=== PATIENT | female | born 1955 | race Caucasian/White ===

== ENCOUNTER 2017-05-16 20:41 | Observation (INO) | payer OTHER ==
[~2017-05-16] VITALS: Ht 154.9 cm; Wt 100.0 kg
--- NOTE | ~2017-05-16 | HP ---
Unit #: [id number] #: [id number] Patient: RAVI RUANO [id number] [address] [place], [place] [address] [id number] I MR#: [id number] NAME: RAVI RUANO ROOM: [facility] Age: 61 Sex: F Admission Date: 05/17/2017 : 1955 Attending Physician: Linda Velazquez M.D. Referring Physician: Ev Henderson M.D. Primary Care Physician: Ev Henderson M.D. HISTORY AND PHYSICAL CHIEF COMPLAINT Symptomatic microcytic anemia. HISTORY This pleasant 61-year-old female who is status post gastric bypass surgery with AODM, hypertension, CAD, is admitted for symptomatic microcytic anemia. The patient last received an iron infusion in October. She was told that her hemoglobin was 13 after that. She was well until one week prior to admission when she noticed that she was paler, weaker, and shaky. Yesterday when attempting to ambulate she fell scraping her knees and ankles. She was brought to this emergency department late last evening with normal vital sings. Her hematocrit is 25.3, with a hemoglobin of 7.5, MCV is 66.7. Heme negative from below. His case was discussed with Dr. Berg who requests transfusion, possible iron infusion. I was asked to admit the patient. PAST MEDICAL HISTORY 1. History of iron deficiency anemia, status post gastric bypass surgery. Patient also received weekly subcu B12 shots along with p.o. folic acid each day. Last EGD was performed 07/2014 when the patient was found to be heme positive with her anemia. She was felt to have a marginal ulcer near her gastrojejunostomy. Underwent a colonoscopy at that time, which was only a fair prep, but was grossly normal. 2. Non ST elevation NM 07/2014. PCI and stent were performed on a 99% left circumflex stenosis. She was noted to have 60% stenosis of the LAD. Has a normal ejection fraction. 3. AODM. 4. Essential hypertension. 5. Hyperlipidemia. 6. x2. 7. Gastric bypass surgery. 8. Foot surgery. 9. Carpal tunnel release. 10. Myringotomy tubes. 11. Right rotator cuff repair. ALLERGIES None. HOME MEDICATIONS I have a partial list including trazodone, aspirin 81 mg daily, HCTZ and Unit #: [id number] #: [id number] Patient: RAVI RUANO, metformin 1,000 mg q. a.m., Lipitor, multivitamin, folic acid, B12 injections each week, Coreg 6.25 mg b.i.d., Neurontin, Zyrtec, and Singulair. FAMILY HISTORY CAD, diabetes mellitus, hypertension. SOCIAL HISTORY The patient's family lives with the patient. She is a lifelong nonsmoker and does not drink alcohol. REVIEW OF SYSTEMS Notable for weakness, shakiness, anemia, CAD, AODM, hypertension, hyperlipidemia, fall, above mentioned surgeries, peptic ulcer disease, COPD. All other systems were reviewed and otherwise negative. PHYSICAL EXAMINATION GENERAL: Pleasant, obese, 61-year-old pale female currently in no acute distress. VITAL SIGNS: Temperature 98.9, pulse 77, respirations 16, blood pressure 140/76, O2 saturation is 100% on room air. HEENT: Eyes PERRLA. Extraocular muscles are intact. Pharynx is benign. NECK: Supple without adenopathy or thyromegaly. CHEST: Clear. CARDIAC: Normal S1 and S2 without murmur. ABDOMEN: Bowel sounds are present. Well healed scars noted. Nontender. No hepatosplenomegaly, tenderness or masses. RECTAL: Heme negative per the ER physician. EXTREMITIES: Without edema. NEUROLOGIC: Patient is awake, alert and oriented. Cranial nerves are intact, equal strength throughout. DIAGNOSTIC STUDIES LABORATORY STUDIES: Hematocrit is 25.3, hemoglobin 7.5, MCV is 66.7, normal white count and platelet count. SMA 12 - glucose is 120. Cardiac markers are negative. Urinalysis is negative. IMAGING STUDIES: Plain x-rays of the knees bilaterally were negative for fracture. X-ray of the left ankle also negative for fracture. CARDIOLOGY STUDIES: EKG - normal sinus rhythm, rate 75, normal appearing. ASSESSMENT 1. Symptomatic microcytic anemia. Patient currently is heme negative. She is status post gastric bypass surgery. He is followed by Dr. Wesley. 2. History of peptic ulcer disease. 3. CAD, status post PCI and stent of the left circumflex with normal ejection fraction. 4. AODM. 5. COPD. 6. Essential hypertension. PLANS 1. Check iron stores. 2. Transfuse 2 units of packed red blood cells. Unit #: [id number] #: [id number] Patient: RAVI RUANO 3. SCDs for DVT prophylaxis. 4. Check labs post transfusion. 5. IV Venofer if okay with hematology. Will be seeing the patient in the morning. Dictated by Linda Velazquez M.D. AML/ts TD: 05/17/2017 05:38 JOB #: [id number] HISTORY AND PHYSICAL Page 1 of 1 X Linda Velazquez MD X HISTORY AND PHYSICAL
--- NOTE | ~2017-05-16 | CR173 ---
[facility] A Service of [facility] & [facility] RADIOLOGY TEXT RESULTS PATIENT: RAVI RUANO LOCATION: [facility] 305- : [birth year] UNIT #: [id number] AGE: [address]: Maria T Young MD SEX: F ORDER DR: [id number] [facility] [address] [facility]. [place], [place] [address] [id number] I MR#: [id number] #: [id number] NAME: RAVI RUANO : 1955 SEX: F STUDY DATE/TIME: 05/16/2017 21:49 UNIT: [address] ROOM: [facility] STUDY DESCRIPTION: CR Knee 3 Views Rt Attending Physician: Maria T Young M.D. Referring Physician: Ev Henderson M.D. Ordering Physician: Ed Doctor [id number] [facility] Primary Care Physician: Ev Henderson M.D. MEDICAL IMAGING REPORT This report is preliminary unless electronic signature is present EXAM Right knee, 05/16/2017 HISTORY A 61-year-old female with right knee pain status post fall today. COMPARISON STUDIES None. FINDINGS Three views of the right knee demonstrate no acute fracture or dislocation. No joint effusion. Advanced degenerative change patellofemoral joint. Mild degenerative change medial and lateral compartment. Soft tissues are unremarkable. IMPRESSION 1. No acute fracture or dislocation. 2. 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 Dictated by... Bebeto Dumas M.D. THIS IS AN ELECTRONICALLY VERIFIED REPORT Bebeto Dumas M.D. at 05/17/2017 2:25 PM Lisa TD: 05/17/2017 13:13 JOB #: [id number] MEDICAL IMAGING REPORT Page 1 of 1 COPY
--- NOTE | ~2017-05-16 | BMI ---
[facility] Nutrition Therapy DATE: 05/17/17 Patient: RAVI RUANO Physician: BOZENA Address: [address] [place] [address] Room/Bed: [address] [place] [address], Zip: [place] [address] Admit Date: 05/17/17 Date of : [birth year] Height: 5 1 Weight: 220 100 HIGH BMI NOTE: DX: 61 y/o female admitted for anemia and "legs gave out" ANTHROPOMETRICS: ht: 5'1" wt: 220# (100 kg) BMI 41 DIET: Consistent Carbohydrate INTERVENTION: 1. Consistent carbohydrate diet RECOMMENDATIONS: 1. Add healthy heart to current consistent carbohydrate diet order in order to promote gradual weight loss towards a healthy BMI (19.0-25.0). RD will f/u per protocol. Respectfully, TAMARA LARSON, record label internship Forrest Roman MS, RD, LD [facility] cc: client file
--- NOTE | ~2017-05-16 | CR172 ---
[facility] A Service of [facility] & [facility] RADIOLOGY TEXT RESULTS PATIENT: RAVI RUANO LOCATION: [facility] 305- : [birth year] UNIT #: [id number] AGE: [address]: Maria T Young MD SEX: F ORDER DR: [id number] [facility] [address] [facility] [address] [facility] [place], [place] [address] [id number] I MR#: [id number] #: [id number] NAME: RAVI RUANO : 1955 SEX: F STUDY DATE/TIME: 05/16/2017 21:45 UNIT: [address] ROOM: [facility] STUDY DESCRIPTION: CR Knee 3 Views Lt Attending Physician: Maria T Young M.D. Referring Physician: Ev Henderson M.D. Ordering Physician: Ed Doctor [id number] [facility] Primary Care Physician: Ev Henderson M.D. MEDICAL IMAGING REPORT This report is preliminary unless electronic signature is present EXAM Left knee, 05/16/2017 HISTORY 61-year-old female with left knee pain status post fall today. COMPARISON None FINDINGS Three views of the left knee demonstrate no acute fracture or dislocation. Trace joint effusion. Moderately advanced degenerative change patellofemoral joint. Moderate degenerative change medial and lateral compartments. Soft tissues are unremarkable. IMPRESSION 1. No evidence of acute fracture or dislocation. 2. Trace joint effusion. 3. 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 Dictated by... Bebeto Dumas M.D. THIS IS AN ELECTRONICALLY VERIFIED REPORT Bebeto Dumas M.D. at 05/17/2017 2:25 PM Kirsten TD: 05/17/2017 13:13 JOB #: [id number] MEDICAL IMAGING REPORT Page 1 of 1 COPY
--- NOTE | ~2017-05-16 | CO ---
Unit #: [id number] #: [id number] Patient: RAVI RUANO [id number] [address] [address] [id number] I MR#: [id number] NAME: RAVI RUANO ROOM: 305 Age: 61 Sex: F Admission Date: 05/17/2017 : 1955 Attending Physician: Maria T Young M.D. Primary Care Physician: Ev Henderson M.D. Requesting Physician: Ev Henderson M.D. CONSULTATION REPORT CHIEF COMPLAINT Anemia due to malabsorption of iron, recent VT, mild diabetes, hypertension, came to the hospital with a fall, no fracture. HISTORY OF PRESENT ILLNESS This is a 61-year-old female who in the past had a gastric bypass. Patient has had partial success. At present, she weighs about 220 pounds. The patient has been receiving intravenous iron, folic acid, B12 in my office for a long time. Hemoglobin has been stable. However, yesterday she had weakness, unable to walk, had a fall and injured her left knee. There is no fracture. CBC during this admission showed WBC 7.6, hemoglobin 7.5, MCV 66 and platelet 194. Creatinine is 0.8. LFTs are normal. The patient is taking aspirin for her coronary artery disease. The patient had a recent VT, has one stent. REVIEW OF SYSTEMS CONSTITUTIONAL: Mild decline in performance status. EYES: No visual symptoms. EARS, NOSE AND THROAT: There is no runny nose or sore throat or difficulty hearing. CARDIOVASCULAR: No chest pain. No shortness of breath. No palpitations. No orthopnea. No PND. RESPIRATORY: No cough. No wheezing. No hemoptysis. GASTROINTESTINAL: No nausea, vomiting, diarrhea, constipation, hematochezia or melena. GENITOURINARY: No urinary frequency, hesitancy or urgency. No blood in the urine. MUSCULOSKELETAL: No muscle or joint pain. NEUROLOGIC: No headache. No numbness or tingling. No weakness. No seizure. PSYCHIATRIC: No anxiety, depression or mood disturbance. ENDOCRINE: No excessive urination or thirst. DERMATOLOGIC: No rash or change in the skin. ALLERGIC/IMMUNOLOGIC: No symptoms. HEMATOLOGIC/LYMPHATIC: Denies any symptoms. PAST MEDICAL HISTORY 1. VT, status post stent. 2. Diabetes. 3. Hypertension. 4. Recurrent anemia. Unit #: [id number] #: [id number] Patient: RAVI RUANO ALLERGIES None. SOCIAL HISTORY No smoking, no alcohol, no drugs. 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 SURGICAL HISTORY 1. Carpal tunnel on both hands. 2. Three C-sections. 3. Right sided rotator cuff repair. FAMILY HISTORY Negative for cancer. PHYSICAL EXAMINATION VITAL SIGNS: Afebrile. Pulse 71, respiratory rate 18, O2 sat on room air 100%, blood pressure 161/80. GENERAL: Patient is comfortable. ECOG is 0. The patient is pleasant. HEENT: Moist mucosa. Pupils equally reactive to light. Extraocular muscles intact. Sclerae anicteric. No obvious bleeding from nasal mucosa or oral mucosa. Scalp normal. Hearing normal. NECK: No JVD. No lymphadenopathy. LYMPHATIC/HEMATOLOGIC: There is no palpable adenopathy in the neck, axilla or inguinal area. CARDIOVASCULAR: S1, S2. Regular rate and rhythm. No S3 or S4. RESPIRATORY: Chest symmetrical, normal. Clear to auscultation bilaterally. No wheezes, no rales, no rhonchi. No dullness to percussion. ABDOMEN/GASTROINTESTINAL: Abdomen is soft, nontender, nondistended. No hepatosplenomegaly. EXTREMITIES: There is no clubbing, no cyanosis, no edema. No varicose veins. NEUROLOGICAL: Patient is alert, awake and oriented x3. Cranial nerves II-XII are intact. Sensory grossly intact. Motor is 4/5 in all four extremities. Gait is normal. Station is normal. Language is normal. Memory is normal. DTRs +2 in all four extremities. MUSCULOSKELETAL: No joint swelling. No bony tenderness. No muscle tenderness. SKIN: No petechiae, no rash, no ecchymosis. PSYCHIATRIC: No anxiety. No delusions or hallucinations. There is no agitation. Eye contact is normal. Affect is appropriate. There is no flight of ideas. DIAGNOSTIC STUDIES LABORATORY: Labs as mentioned above. ASSESSMENT AND PLAN This is a 61-year-old female with the following active issues: 1. Anemia: It is complex in nature. She is taking aspirin. She is on and off bleeding. Her MCV is low. In the past, she had a gastric bypass. Today, we will give her some folic acid, B12 and intravenous iron. Probably she can go home in the morning. I will follow the patient as an outpatient. 2. Myocardial infarction: The patient has a myocardial infarction. She weighs about 100 kg. I had an extensive discussion in this regard. She was encouraged to lose some weight. She is tolerating aspirin. She is not taking Plavix. Denied any bleeding. Unit #: [id number] #: [id number] Patient: RAVI RUANO Dictated by... Marco A Villatoro/yobany TD: 05/17/2017 09:51 JOB #: [id number] CC: Flavia Antoine A.P.R.N. CONSULTATION REPORT Page 1 of 1 X Glen Wesley MD X CONSULTATION REPORT
--- NOTE | ~2017-05-16 | EKG ---
PATIENT: RAVI RUANO UNIT #: [id number] Ventricular Rate: 75 BPM Atrial Rate: 75 BPM P-R Interval: 168 ms QRS Duration: 90 ms Q-T Interval: 426 ms QTC Calculation(Bezet): 475 ms P Hometown: 27 degrees Calculated R Hometown: -4 degrees Calculated T Hometown: 20 degrees Diagnosis Line: Normal sinus rhythm Diagnosis Line: Minimal voltage criteria for LVH, may be normal Diagnosis Line: variant Diagnosis Line: Borderline ECG Diagnosis Line: When compared with ECG of 10-JUL-2014 06:41, Diagnosis Line: Nonspecific T wave abnormality no longer evident Diagnosis Line: in Lateral leads Diagnosis Line: QT has lengthened Diagnosis Line: Confirmed by ARAMIS MONTES MD ([id number]) on Diagnosis Line: 05/17/2017 3:52:43 PM INTERPRETING MD: SIMON ALONSO
--- NOTE | ~2017-05-16 | DS ---
Unit #: [id number] #: [id number] Patient: RAVI RUANO [id number] [address] [place], [place] [address] [id number] I MR#: [id number] NAME: RAVI RUANO ROOM: 305 Age: 61 Sex: F Admission Date: 05/17/2017 : 1955 Discharge Date: 05/17/2017 Attending Physician: Maria T Young M.D. Referring Physician: Ev Henderson M.D. Primary Care Physician: Ev Henderson M.D. DISCHARGE SUMMARY PRIMARY CARE PROVIDER Dr. Ev Henderson. CONSULTANTS Dr. Wesley, Oncology. PRINCIPAL DIAGNOSES 1. Symptomatic iron-deficiency anemia, status post transfusion of 2 units packed red blood cells. Discharge hemoglobin 10.1. 2. Severe iron-deficiency anemia secondary to history of gastric bypass surgery. Ferritin level is 5. 3. Hypertension. 4. Diabetes mellitus type 2, non-insulin requiring. 5. Coronary artery disease. 6. Hyperlipidemia. 7. Chronic insomnia. 8. Gastroesophageal reflux disease. 9. Obesity, morbid. 10. Status post fall. PROCEDURES 1. X-ray of left ankle on 05/16/2017 without any acute findings. Degenerative changes of the midfoot are noted. Mild arterial calcification noted. 2. X-ray of left knee on 05/16/2017 with no evidence of fracture or dislocation. Tricompartmental arthrosis noted. 3. X-ray of right knee on 05/16/2017 with again tricompartmental arthrosis. No other acute findings. CLINICAL HISTORY AND HOSPITAL COURSE Ms Ruano is a 61-year-old female, with history of chronic iron-deficiency anemia secondary to gastric bypass, who presents to the emergency department because she was feeling paler, weaker, and shaky. She actually fell yesterday at home, it was concerned that perhaps her hemoglobin was low. Upon presentation she was found to have a hemoglobin of 7.5 with an MCV of 66. The patient has not received any iron supplementation since 10/2016. The patient was subsequently placed in observation for evaluation. The patient was transfused 2 units of packed red blood cells. Her hemoglobin currently is 10.1. I will note that she was heme-negative in the ER. She is currently receiving a dose of IV Venofer. Her lightheadedness, her weakness, her shakiness have all resolved and she has Unit #: [id number] #: [id number] Patient: RAVI RUANO been ambulating to the bathroom. I will also note the x-rays were negative in the emergency department. Given she is clinically improved, Dr. Wesley is agreeable to discharge later today with plans for outpatient Venofer infusions. I will know the patient was hypertensive, but was not restarted on any of her blood pressure medications initially. I will give her a dose of these, re-evaluate blood pressure, and she can be discharged home later today. DISCHARGE CONDITION Stable. DISCHARGE STATUS Discharged to home. DISCHARGE MEDICATIONS Gabapentin 300 mg p.o. t.i.d., trazodone 150 mg at bedtime, Coreg 6.25 mg p.o. b.i.d., Dulera 100/5 two puffs b.i.d., Lipitor 20 mg at bedtime, Carafate 1 g p.o. q.i.d., Singulair 10 mg daily, daily multivitamin, aspirin 81 mg daily, potassium chloride 10 mEq p.o. b.i.d., folic acid 1 mg daily, vitamin B12 1000 mcg subcutaneously weekly, fluticasone 50 mcg 2 sprays per nostril daily, Norvasc 5 mg daily, metformin 1000 mg b.i.d., Zyrtec 10 mg daily, Coreg 3.125 mg p.o. b.i.d., hydrochlorothiazide 25 mg daily, ProAir HFA two puffs q.i.d. p.r.n. for shortness of breath, and CoQ10 100 mg p.o. daily. DISCHARGE INSTRUCTIONS The patient was instructed to follow heart healthy and constant carb diet. She will continue Accu-Cheks as she was doing home previously. She can increase her activity as tolerated. FOLLOWUP The patient will follow up with Dr. Wesley in 2 to 3 weeks. Need outpatient Venofer infusions arranged. Dictated by... Maria T Young M.D. CARYN/nestor TD: 05/20/2017 23:08 JOB #: [id number] DISCHARGE SUMMARY Page 1 of 1 X Maria T Young MD DISCHARGE SUMMARY
--- NOTE | ~2017-05-16 | CR20 ---
[facility] A Service of [facility] & [facility] RADIOLOGY TEXT RESULTS PATIENT: RAVI RUANO LOCATION: [facility] 305- : 53 UNIT #: [id number] AGE: [address]: Maria T Young MD SEX: F ORDER DR: [id number] [facility] [address] [facility]. [place], [place] [address] [id number] I MR#: [id number] #: [id number] NAME: RAVI RUAON : 1955 SEX: F STUDY DATE/TIME: 05/16/2017 21:44 UNIT: [address] ROOM: [facility] STUDY DESCRIPTION: CR Ankle Min 3 Views Lt Attending Physician: Maria T Young M.D. Referring Physician: Ev Henderson M.D. Ordering Physician: Ed Edy Goss M.D. Primary Care Physician: Ev Henderson M.D. MEDICAL IMAGING REPORT This report is preliminary unless electronic signature is present EXAM Left ankle 3 views. HISTORY Ankle pain after fall today. FINDINGS Three views of the left ankle demonstrate normal bone alignment. No fracture or dislocation. Small posterior and plantar calcaneal spurs and mild degenerative changes in the midfoot. Mild arterial calcifications. IMPRESSION No acute findings. Dictated by... Aurelio Lama M.D. THIS IS AN ELECTRONICALLY VERIFIED REPORT Aurelio Lama M.D. at 05/17/2017 2:23 PM DFL/bd TD: 05/17/2017 13:22 JOB #: [id number] MEDICAL IMAGING REPORT Page 1 of 1 COPY
[~2017-05-16 20:41] MED LIST: ALTOPREV40 MG PO; ASPIRIN81 MG PO; BAYER ASPIRIN325 M1 PO; CARAFATE1 G PO; COREG6.25 MG PO; DESYREL50 MG PO; FOLIC ACID1 MG PO; HYDROCHLOROTHIA25 MG PO; IRON325 ( 652 PO; LIPITOR40 MG PO; LOVASTATIN20 M2 PO; METFORMIN HCL500 M1 PO; MULTI VITAMIN1 EACH PO; NAPROSYN500 MG PO; NEURONTIN300 MG PO; NITROGLYGERIN0.4 MG SL; NORVASC PO; PARAFON FORTE500 M2 PO; PLAVIX PO; POTASSIUM CHLO10 ME1 PO; PROTONIX PO; TENORMIN25 MG PO
[2017-05-16 21:45] LABS: POC - CKMB 1.4 ng/mL (0.0-7.9); POC - TROPONIN <0.05 ng/mL (<=0.05)
[2017-05-16 21:55] LABS: ALBUMIN SERUM 3.8 g/dL (3.5-5.0); ALKALINE PHOSPHATASE 57 U/L (32-92); ALT (SGPT) 30 U/L (10-40); AST (SGOT) 30 U/L (10-42); BILIRUBIN, DIRECT 0.1 mg/dL (0.0-0.2); BLOOD UREA NITROGEN 14 mg/dL (9-23); CALCIUM SERUM 8.3 mg/dL (8.4-10.2); CARBON DIOXIDE 24 mmol/L (22-31); CHLORIDE 106 mmol/L (100-111); CREATININE SERUM 0.8 mg/dL (0.6-1.4); GLOM FILT RATE Estimated 78.5 mL/min (>60); GLUCOSE FASTING 120 mg/dL (70-110); POTASSIUM 3.8 mmol/L (3.5-5.1); PROTEIN TOTAL SERUM 6.6 g/dL (6.0-8.3); SODIUM 137 mmol/L (135-145)
[2017-05-16 21:57] LABS: URINE SOURCE CLEAN CATCH
[2017-05-16 21:58] LABS: BILIRUBIN,TOTAL <0.1 mg/dL (0.2-2.0)
[2017-05-16 22:01] LABS: BASOPHIL# 0.1 X10e3 (0-0.3); BASOPHIL% 0.9 % (0-2.5); EOSINOPHIL# 0.2 X10e3 (0-0.7); EOSINOPHIL% 3.1 % (0.0-7.0); HEMATOCRIT 25.3 % (35.0-45.0); HEMOGLOBIN 7.5 gm/dL (12.0-16.0); LYMPHOCYTE% 25.9 % (17.0-45.0); MEAN CELL VOLUME 66.7 FL (83-96); MEAN CORPUSCULAR HEMOGLOBIN 19.8 PG (28-34); MEAN CORPUSCULAR HGB CONC 29.7 g/dL (30-36); MEAN PLATELET VOLUME 8.6 FL (6.5-11.5); MONOCYTE# 0.6 X10e3 (0-1.0); MONOCYTE% 7.6 % (3.0-12.0); NEUTROPHIL# 4.8 X10e3 (1.5-7.1); NEUTROPHIL% 62.5 % (40-75); PLATELET COUNT 194 X10e3 (140-420); RED CELL DISTRIBUTION WIDTH 19.6 % (11.0-15.5); WHITE BLOOD COUNT 7.6 X10e3 (4.0-10.5)
[2017-05-16 22:05] LABS: DIFF IND YES
[2017-05-16 22:09] LABS: URINE APPEARANCE CLEAR; URINE BILIRUBIN NEG (NEG); URINE BLOOD NEG (NEG); URINE COLOR YELLOW; URINE GLUCOSE NEG (NEG); URINE KETONE NEG (NEG); URINE LEUKOCYTE ESTERASE NEG (NEG); URINE NITRATE NEG (NEG); URINE PROTEIN NEG (NEG); URINE SPECIFIC GRAVITY 1.014 (1.003-1.035); URINE UROBILINOGEN 0.2 MG/DL (NEG)
[2017-05-16 22:12] LABS: CULTURE INDICATED? NO
[2017-05-16 22:16] LABS: ANISOCYTOSIS SL; PLATELET ESTIMATE NORMAL (NORMAL)
[2017-05-16 22:17] LABS: HYPOCHROMIA MOD; MICROCYTOSIS MOD; TEAR DROP CELLS PRESENT
[2017-05-16 23:44] LABS: POC - CKMB 1.5 ng/mL (0.0-7.9); POC - TROPONIN <0.05 ng/mL (<=0.05)
[2017-05-17 09:21] LABS: HEMATOCRIT 32.9 % (35.0-45.0); MEAN CORPUSCULAR HEMOGLOBIN 21.5 PG (28-34); MEAN CORPUSCULAR HGB CONC 30.7 g/dL (30-36); MEAN PLATELET VOLUME 8.5 FL (6.5-11.5); RED BLOOD COUNT 4.69 X10e (3.90-5.30); RED CELL DISTRIBUTION WIDTH 22.1 % (11.0-15.5); RETICULOCYTE 1.9 % (0.5-2.8)
[2017-05-17 09:22] LABS: HEMOGLOBIN 10.1 gm/dL (12.0-16.0)
[2017-05-17 09:50] LABS: BUN/CREATININE RATIO 12.22; CALCIUM SERUM 8.3 mg/dL (8.4-10.2); CREATININE SERUM 0.9 mg/dL (0.6-1.4); GLOM FILT RATE Estimated 68.1 mL/min (>60); POTASSIUM 3.5 mmol/L (3.5-5.1)
[2017-05-17 13:46] LABS: IRON SERUM 177 ug/dL (28-170); TOTAL IRON BINDING CAPACITY 509 ug/dL (269-535); TRANSFERRIN 364 mg/dL (192-382); TRANSFERRIN SATURATION 35 % (20-50)
[2017-05-17] MEDS ORDERED: MULTI VITAMIN1 EACH PO (17:37)
[2017-05-17] MEDS ORDERED: CYANOCOBAL1000 MCG/M INJ (17:39)
[2017-05-17] MEDS ORDERED: METFORMIN PO (17:40)
[2017-05-17] MEDS ORDERED: NORVASC PO (17:41)
[2017-05-17] MEDS ORDERED: FLUTICASONE P15.8 ML (17:45)
[2017-05-17] MEDS ORDERED: ZYRTEC10 M1 PO (17:45)
[2017-05-17] MEDS ORDERED: ALDACTAZIDE PO (17:55)
[2017-05-17] MEDS ORDERED: PROAIR HFA8.5 GM INH (17:56)
[2017-05-17] MEDS ORDERED: CO Q10100 MG PO (17:57)
[2017-05-17] MEDS ORDERED: K-DUR10 MEQ PO (18:40)
[2017-05-17] MEDS ORDERED: SINGULAIR PO (18:41)
== END 2017-05-17 19:30 | disposition home or self-care (01) ==
LOC: CED 20:41 → CEDOF 05-17 00:01 → CED 05-17 00:01 → CEDOF 05-17 00:05 → C3A PCU 05-17 02:22
PROVIDERS: Emergency Medicine; Internal Medicine
DX: D50.9 Iron deficiency anemia, unspecified (principal); K90.9 Intestinal malabsorption, unspecified; Z98.84 Bariatric surgery status; I25.10 Atherosclerotic heart disease of native coronary artery without angina pectoris; I10 Essential (primary) hypertension; E78.5 Hyperlipidemia, unspecified; J44.9 Chronic obstructive pulmonary disease, unspecified; I25.2 Old myocardial infarction; E11.9 Type 2 diabetes mellitus without complications; E66.01 Morbid (severe) obesity due to excess calories; K21.9 Gastro-esophageal reflux disease without esophagitis; G47.00 Insomnia, unspecified; Z79.82 Long term (current) use of aspirin; Z87.11 Personal history of peptic ulcer disease; Z91.81 History of falling; Z79.899 Other long term (current) drug therapy
CPT/HCPCS: 36415; 36430; 73562; 73610; 80048; 80076; 81003; 82274; 82553; 82728; 82947; 83540; 83550; 84484; 85025; 85027; 85044; 86850; 86900; 86901; 86923; 93005; 94640; 94760; 96374; 99285; G0378; J1815; J2916; J3420; P9016